=== PATIENT | female | born 1950 | race Caucasian/White ===

== ENCOUNTER 2019-02-19 16:41 | Emergency (ER) | payer OTHER ==
[~2019-02-19] VITALS: Ht 149.9 cm; Wt 65.8 kg
[2019-02-19] MEDS ORDERED: LIPITOR20 MG (17:34)
[2019-02-19] MEDS ORDERED: TESSALON PERLE100 M1 (17:34)
[2019-02-19] MEDS ORDERED: ZESTRIL2.5 MG PO (17:34)
[2019-02-19] MEDS ORDERED: GLIMEPIRIDE4 MG (17:35)
== END 2019-02-19 18:07 | disposition home or self-care (01) ==
LOC: ER 16:41
DX: R06.02 Shortness of breath (principal)